=== PATIENT | female | born 1990 | race Caucasian/White ===

== ENCOUNTER 2018-03-21 21:41 | Emergency (ER) | payer OTHER ==
[2018-03-21 22:37] LABS: URINE PH (Dip) POC 5.5 (5.0-8.5)
[2018-03-21 22:37] LABS: URINE BLOOD (Dip) POC 1+ (NEGATIVE); URINE GLUCOSE (Dip) POC Negative (NEGATIVE); URINE KETONES (Dip) POC 2+ (NEGATIVE); URINE LEUKOCYTE EST (Dip) POC 2+ (NEGATIVE); URINE NITRITE (Dip) POC Negative (NEGATIVE); URINE TOTAL PROTEIN POC Negative (NEGATIVE)
[2018-03-21] MEDS: HYDROCODONE/APAP (5/325) TAB PO (22:50)
== END 2018-03-22 00:06 | disposition home or self-care (01) ==
LOC: FTE 03-22 00:06
DX: M54.5 Low back pain (principal)
CPT/HCPCS: 72100; 81003; 81025; 99283-25